=== PATIENT | female | born 1990 | race African-American/Black ===

== ENCOUNTER 2021-04-27 17:44 | Emergency (ER) | payer SELFPAY ==
[~2021-04-27] VITALS: Ht 172.7 cm; Wt 70.3 kg
[2021-04-27] MEDS ORDERED: LIDOCAINE HCL 1% LOCAL INJ 20 ML VIAL ONE (18:12)
[2021-04-27] MEDS ORDERED: DOXYCYCLINE HY100 MG PO (18:21)
== END 2021-04-27 18:30 | disposition home or self-care (01) ==
LOC: ER 18:01
DX: L02.414 Cutaneous abscess of left upper limb (principal); F11.10 Opioid abuse, uncomplicated
CPT/HCPCS: 10060; 99283; J2001